=== PATIENT | male | born 1995 | race Caucasian/White ===

== ENCOUNTER 2017-05-05 20:13 | Outpatient (CLI) | payer MEDICAID | END 2017-05-05 20:14 | disposition critical access hospital (66) | LOC: EMS 20:13 | PROVIDERS: ATTEND Surgery | DX: R68.89 Other general symptoms and signs (principal) | CPT/HCPCS: A0425; A0429 ==

== ENCOUNTER 2017-05-05 20:38 | Emergency (ER) | payer MEDICAID ==
[2017-05-05 20:58] VITALS: BP 168/70
[2017-05-05 21:15] LABS: BASOPHILS # (AUTO) 0.1 10^3/uL (0.0-0.1); BASOPHILS % (AUTO) 0.3 %; EOSINOPHILS % (AUTO) 0.2 %; HCT - HEMATOCRIT 38.4 % (42.0-52.0); HGB - HEMOGLOBIN 13.3 g/dL (14.0-18.0); LYMPHOCYTES # (AUTO) 2.3 10^3/uL (1.5-3.5); LYMPHOCYTES % (AUTO) 13.2 %; MEAN CORPUSCULAR HEMOGLOBIN 28.3 pg (27.0-31.0); MEAN CORPUSCULAR HGB CONC 34.5 g/dL (32.0-36.0); MEAN PLATELET VOLUME 6.9 fL (7.4-11.4); MONOCYTES # (AUTO) 1.7 10^3/uL (0.0-1.0); MONOCYTES % (AUTO) 9.8 %; NEUTROPHILS # (AUTO) 13.4 10^3/uL (1.5-6.6); NEUTROPHILS % (AUTO) 76.5 %; RED BLOOD COUNT 4.69 10^6/uL (4.70-6.10); RED CELL DISTRIBUTION WIDTH 13.9 % (12.0-15.0); UNCORRECTED WHITE BLOOD COUNT 17.5 x10^3/uL; WHITE BLOOD COUNT 17.5 x10^3/uL (4.8-10.8)
[2017-05-05 21:21] LABS: ALBUMIN/GLOBULIN RATIO 2.2 (1.0-2.2); BILIRUBIN,TOTAL 1.8 mg/dL (0.2-1.0); BUN - BLOOD UREA NITROGEN 25 mg/dL (6-20); CALCIUM 9.5 mg/dL (8.5-10.3); CARBON DIOXIDE - CO2 20 mmol/L (21-32); CHLORIDE 96 mmol/L (101-111); CREATININE 1.1 mg/dL (0.6-1.2); GFR - MDRD 85 (>89); GLUCOSE 95 mg/dL (70-100); LIPASE 16 U/L (22-51); POTASSIUM 3.6 mmol/L (3.5-5.0); SALICYLATE < 6.0 mg/dL; SODIUM 132 mmol/L (135-145); TOTAL PROTEIN 7.7 g/dL (6.7-8.2)
[2017-05-05 21:22] LABS: ACETAMINOPHEN < 10 ug/mL (10-30)
[2017-05-05 22:00] LABS: BILIRUBIN,URINE NEGATIVE (NEGATIVE)
[2017-05-05 22:01] LABS: UA w/ MICROSCOPIC CHARGE YES
--- NOTE | 2017-05-05 22:05 | ED Physician Documentation ---
History of Present Illness - Stated complaint Stated Complaint: NOT FEELING WELL, HULLICINATIONS SP DRUG USAGE - Chief complaint Chief Complaint: MHE - History obtained from History obtained from: Patient, EMS - Additonal information Additional information: Patient is a 21 year old male brought in by police for not feeling well. According to patient and ems patient was at [facility], acting funny and wouldn't leave. Patient complained to police there that he wasn't feeling well so the police brought the patient in for evaluation. Patient admits to taking meth today. Review of Systems Unable to obtain: Confused, Intoxicated PD PAST MEDICAL HISTORY - Past Medical History Past Medical History: No - Past Surgical History Past Surgical History: No - Present Medications Home Medications: Ambulatory Orders Medication Instructions Recorded Confirmed Levofloxacin [Levaquin] 750 mg PO DAILY #5 tablet 05/05/17 - Allergies Allergies/Adverse Reactions: Allergies Allergy/AdvReac Type Severity Reaction Status Date / Time No Known Drug Allergies Allergy Verified 05/05/17 20:55 - Social History Does the pt smoke?: No Smoking Status: Never smoker Does the pt drink ETOH?: Yes Does the pt have substance abuse?: Yes Substance Use and Type: Meth, Cocaine/Crack, Prescription Pills, Other PD ED PE NORMAL - Vitals Vital signs reviewed: Yes - General General: Alert and oriented X 3 - HEENT HEENT: Atraumatic, PERRL - Neck Neck: Supple, no meningeal sign - Cardiac Cardiac: RRR, No murmur - Respiratory Respiratory: No respiratory distress - Abdomen Abdomen: Non distended - Derm Derm: Normal color, No rash - Extremities Extremities: No deformity, Normal ROM s pain - Neuro Neuro: No motor deficit, No sensory deficit PD ED PE EXPANDED - General General: Alert - Psych Psych: Agitated, Pressured speech, Delusions Results - Vitals Vitals: Vital Signs - 24 hr 05/05/17 20:53 Temperature 37.0 C Heart Rate 126 H Respiratory 22 Rate Blood Pressure 168/70 H O2 Saturation 99 Oxygen O2 Source Room air - Labs Labs: Laboratory Tests 05/05/17 05/05/17 05/05/17 21:01 21:01 21:01 WBC 17.5 H RBC 4.69 L Hgb 13.3 L Hct 38.4 L MCV 82.0 MCH 28.3 MCHC 34.5 RDW 13.9 Plt Count 304 MPV 6.9 L Neut # 13.4 H Lymph # 2.3 [place] # 1.7 H Eos # 0.0 Baso # 0.1 Absolute Nucleated RBC 0.00 Nucleated RBC % 0.0 Sodium 132 L Potassium 3.6 Chloride 96 L Carbon Dioxide 20 L Anion Gap 16.0 H BUN 25 H Creatinine 1.1 Estimated GFR (MDRD) 85 L Glucose 95 Calcium 9.5 Total Bilirubin 1.8 H AST 38 ALT 20 Alkaline Phosphatase 51 Total Protein 7.7 Albumin 5.3 Globulin 2.4 Albumin/Globulin Ratio 2.2 Lipase 16 L TSH 0.74 Urine Color Urine Clarity Urine pH Ur Specific [place] Urine Protein Urine Glucose (UA) Urine Ketones Urine Occult Blood Urine Nitrite Urine Bilirubin Urine Urobilinogen Ur Leukocyte Esterase Urine RBC Urine WBC Ur Squamous Epith Cells Urine Bacteria Urine Casts Urine Mucus Ur Microscopic Review Urine Culture Comments Salicylates < 6.0 Urine Opiates Screen Ur Oxycodone Screen Urine Methadone Screen Ur Propoxyphene Screen Acetaminophen < 10 L Ur Barbiturates Screen Ur Tricyclics Screen Ur Phencyclidine Scrn Ur Amphetamine Screen U Methamphetamines Scrn U Benzodiazepines Scrn Urine Cocaine Screen U Cannabinoids Screen Ethyl Alcohol < 5.0 05/05/17 05/05/17 21:45 21:45 WBC RBC Hgb Hct MCV MCH MCHC RDW Plt Count MPV Neut # Lymph # [place] # Eos # Baso # Absolute Nucleated RBC Nucleated RBC % Sodium Potassium Chloride Carbon Dioxide Anion Gap BUN Creatinine Estimated GFR (MDRD) Glucose Calcium Total Bilirubin AST ALT Alkaline Phosphatase Total Protein Albumin Globulin Albumin/Globulin Ratio Lipase TSH Urine Color YELLOW Urine Clarity CLOUDY Urine pH 6.0 Ur Specific [place] >=1.030 H Urine Protein TRACE Urine Glucose (UA) NEGATIVE Urine Ketones 15 H Urine Occult Blood SMALL H Urine Nitrite POSITIVE H Urine Bilirubin NEGATIVE Urine Urobilinogen 0.2 (NORMAL) Ur Leukocyte Esterase TRACE H Urine RBC 6-10 H Urine WBC 11-25 H Ur Squamous Epith Cells FEW Squamous Urine Bacteria Many H Urine Casts 0-2 Hyaline Casts Urine Mucus Marked Strands Ur Microscopic Review INDICATED Urine Culture Comments INDICATED Salicylates Urine Opiates Screen POSITIVE H Ur Oxycodone Screen NEGATIVE Urine Methadone Screen NEGATIVE Ur Propoxyphene Screen NEGATIVE Acetaminophen Ur Barbiturates Screen NEGATIVE Ur Tricyclics Screen NEGATIVE Ur Phencyclidine Scrn NEGATIVE Ur Amphetamine Screen POSITIVE H U Methamphetamines Scrn POSITIVE H U Benzodiazepines Scrn NEGATIVE Urine Cocaine Screen NEGATIVE U Cannabinoids Screen NEGATIVE Ethyl Alcohol PD MEDICAL DECISION MAKING - ED course Complexity details: reviewed old records, reviewed results, re-evaluated patient , considered differential, d/w patient ED course: Patient was seen and examined at bedside. labs were drawn and urine was collected. Patient was agitated and symptoms were consistent with sympathomimetics. Patient was found to have a urinary tract infection. Patient was awake, alert and oriented and stated that he wanted to leave. Prescriptions were written. Patient required no further work up and was stable for discharge with outpatient follow up. Departure - Departure Disposition: Home, Self Care Clinical Impression: Urinary tract infection Condition: Good Instructions: ED UTI Cystitis Male Follow-Up: primary,care provider [Other] - Within 3 Days Prescriptions: Levofloxacin [Levaquin] 750 mg PO DAILY #5 tablet Comments: Your sympotms today are being caused by a urinary tract infection. You will need to stay well hydrated and take antibiotics for the next five days. You should refrain from excessive drug use. You should follow up with your pmd for further evaluation and care. Discharge Date/Time: 05/05/17 22:10
[2017-05-05 22:12] LABS: UR CULTURE IF IND INDICATED
== END 2017-05-05 22:10 | disposition home or self-care (01) ==
LOC: ED 20:38
DX: N39.0 Urinary tract infection, site not specified (principal); F15.929 Other stimulant use, unspecified with intoxication, unspecified
CPT/HCPCS: 36415; 80053; 80306; 80307; 80320; 80329; 81001; 81003; 83690; 84443; 85025; 87077; 87086; 99283